=== PATIENT | female | born 1990 | race Caucasian/White ===

== ENCOUNTER → 2016-03-16 | Outpatient (CLI) | payer OTHER ==
--- NOTE | 2016-03-16 21:14 | REP ---
Clinical: Anatomical evaluation. Comparison: 12/14/2015 . Findings: Examination demonstrates a single live intrauterine in breech presentation. motion is identified by technologist. Placenta is noted anteriorly and grade zero without evidence for placenta previa or abruption. Amniotic fluid volume is normal. Cervix measures 4.6 cm in length and appears closed. No evidence for nuchal cord. Gestational age by LMP 20 weeks 3 days with KATHARINA 07/31/2016 . Gestational age by current measurements 20 weeks 1 day with KATHARINA 08/02/2016 . FHR equals 141 beats per minute. BPD 4.8 cm 20 weeks 4 days HC 18.0 cm 20 weeks 3 days AC 15.2 cm 20 weeks 3 days FL 3.3 cm 20 weeks 2 days HL 3.2 cm 20 weeks 4 days HC/AC ratio 1.18 Estimated weight 350 grams ( 44th percentile). Anatomical assessment demonstrates normal structures including cranium, choroid plexus, cavum, cerebellum/posterior fossa, lungs, four-chamber heart/ventricular outflow tracts, diaphragm, stomach, cord insertion/three-vessel cord, kidneys/bladder, and extremities. Impression: Single live intrauterine in breech presentation demonstrating appropriate interval growth. Limited evaluation of the facial features and spine. Remainder of the anatomical assessment is normal. Signed by Syed Bautista MD 03/16/2016 09:05 P
== END ==
LOC: M SMT 13:42
PROVIDERS: ATTEND Advanced Practice Midwife
DX: Z34.82 Encounter for supervision of other normal pregnancy, second trimester (principal)

== ENCOUNTER → 2016-04-12 | Outpatient (CLI) | payer OTHER ==
--- NOTE | 2016-04-13 04:11 | REP ---
Clinical: Anatomical evaluation. Comparison: 03/16/2016 . Findings: Examination demonstrates a single live intrauterine in cephalic presentation. motion is identified by technologist. Placenta is noted anteriorly and grade one without evidence for placenta previa or abruption. Amniotic fluid volume is normal. Cervix measures 3.7 cm in length and appears closed. No evidence for nuchal cord. Gestational age by first ultrasound 24 weeks 2 days with KATHARINA 07/31/2016 . Gestational age by current measurements 24 weeks 0 days with KATHARINA 08/02/2016 . FHR equals 139 beats per minute. Estimated weight 727 grams ( 56th percentile). Anatomical assessment demonstrates normal structures including cranium, choroid plexus, cavum, cerebellum/posterior fossa, facial features, lungs, four-chamber heart, diaphragm, stomach, cord insertion/three-vessel cord, kidneys/bladder, spine, and extremities. Impression: Single live intrauterine in cephalic presentation demonstrating appropriate interval growth. In conjunction with prior examination anatomical assessment is complete and normal. Signed by Syed Bautista MD 04/13/2016 04:03 A
== END ==
LOC: M SMT 13:52
PROVIDERS: ATTEND Specialist
DX: Z34.82 Encounter for supervision of other normal pregnancy, second trimester (principal)

== ENCOUNTER → 2016-04-26 | Outpatient (CLI) | payer OTHER ==
[2016-04-26 18:49] LABS: FREE T4 1.01 NG/DL (0.76-1.46)
[2016-04-26 19:18] LABS: MEAN CORPUSCULAR HEMOGLOBIN 27.5 pg (27.0-33.0); MEAN CORPUSCULAR HGB CONC 31.6 g/dl (32.0-36.5); RED CELL DISTRIBUTION WIDTH 14.2 % (11.5-14.5)
== END ==
LOC: M SMT 13:11
PROVIDERS: ATTEND Advanced Practice Midwife
DX: Z34.82 Encounter for supervision of other normal pregnancy, second trimester (principal); E03.9 Hypothyroidism, unspecified

== ENCOUNTER → 2016-04-28 | Outpatient (REF) | payer OTHER | LOC: M LAB REF 13:30 | PROVIDERS: ATTEND Obstetrics & Gynecology | DX: Z34.82 Encounter for supervision of other normal pregnancy, second trimester (principal) ==

== ENCOUNTER 2016-06-14 19:55 | Outpatient (CLI) | payer OTHER ==
[~2016-06-14] VITALS: Ht 167.6 cm; Wt 98.0 kg
[~2016-06-14 19:55] MED LIST: ACET50TA PO; IBUP80TA PO; LANOOIN21 TOP; NORE0.352 PO
[2016-06-14 20:07] VITALS: BP 127/80
== END 2016-06-14 22:35 | disposition home or self-care (01) ==
LOC: M LDO 19:55
PROVIDERS: ATTEND Advanced Practice Midwife
DX: O36.8131 Decreased fetal movements, third trimester, fetus 1 (principal); O47.03 False labor before 37 completed weeks of gestation, third trimester; O99.343 Other mental disorders complicating pregnancy, third trimester; O99.283 Endocrine, nutritional and metabolic diseases complicating pregnancy, third trimester; O99.333 Smoking (tobacco) complicating pregnancy, third trimester; Z3A.33 33 weeks gestation of pregnancy

== ENCOUNTER → 2016-06-29 | Outpatient (CLI) | payer OTHER ==
--- NOTE | 2016-06-30 03:12 | REP ---
Clinical: Growth discrepancy evaluation. Comparison: 05/31/2016 . Findings: Examination demonstrates a single live intrauterine in cephalic presentation. motion is identified by technologist. Placenta is noted anteriorly and grade III without evidence for placenta previa or abruption. Amniotic fluid volume is normal. Cervix measures 3.4 cm in length and appears closed. No evidence for nuchal cord. Gestational age by LMP 35 weeks 3 days with KATHARINA 07/31/2016 . Gestational age by current measurements 34 weeks 6 days with KATHARINA 08/04/2016 . FHR equals 125 beats per minute. BPD 8.9 cm 35 weeks 6 days HC 31.5 cm 35 weeks 3 days AC 32.1 cm 36 weeks 0 days FL 6.6 cm 33 weeks 5 days HL 5.7 cm 33 weeks 0 days HC/AC ratio 0.98 Estimated weight 2661 grams ( 49th percentile). Amniotic fluid index equals 25.0 cm (7.8 - 24.9) Limited anatomical assessment demonstrates no gross abnormalities. Impression: 1. Single live advanced gestation in cephalic presentation demonstrating appropriate interval growth. 2. Amniotic fluid volume is upper limits of normal/borderline polyhydramnios. Signed by Syed Bautista MD 06/30/2016 03:04 A
== END ==
LOC: M RAD 12:02
PROVIDERS: ATTEND Advanced Practice Midwife
DX: Z36 Encounter for antenatal screening of mother (principal)

== ENCOUNTER → 2016-07-05 | Outpatient (CLI) | payer OTHER ==
[2016-07-05 16:16] LABS: FREE T4 0.97 NG/DL (0.76-1.46)
== END ==
LOC: M LAB 14:53
PROVIDERS: ATTEND Advanced Practice Midwife
DX: E03.9 Hypothyroidism, unspecified (principal)

== ENCOUNTER 2016-07-13 19:17 | Outpatient (CLI) | payer OTHER ==
[~2016-07-13] VITALS: Ht 167.6 cm; Wt 100.0 kg
[2016-07-13 19:28] VITALS: BP 131/72
[2016-07-13 19:32] VITALS: BP 131/72
[2016-07-13] MEDS ORDERED: LEXA1TAB2 PO (20:17)
[2016-07-13] MEDS ORDERED: LEVO75TA4 PO (20:17)
== END 2016-07-13 20:50 | disposition home or self-care (01) ==
LOC: M LDO 19:17
PROVIDERS: ATTEND Obstetrics & Gynecology
DX: O47.1 False labor at or after 37 completed weeks of gestation (principal); Z3A.37 37 weeks gestation of pregnancy

== ENCOUNTER → 2016-07-21 | Outpatient (CLI) | payer OTHER ==
[~2016-07-21] MED LIST changes: +COLA100C3 PO; +IBUP-1114 PO; +LEVO25TA5 PO; +LEVO75TA4 PO; +LEXA1TAB2 PO; +MILKSUS PO
--- NOTE | 2016-07-22 04:08 | REP ---
Clinical: Size discrepancy . Comparison: 06/29/2016 . Findings: Examination demonstrates a single live intrauterine in cephalic presentation. motion is identified by technologist. Placenta is noted anteriorly and grade III without evidence for placenta previa or abruption. Amniotic fluid volume is normal. Cervix measures 4.2 cm in length and appears closed. Nuchal cord cannot be excluded. Gestational age by LMP 38 weeks 4 days with KATHARINA 07/31/2016 . Gestational age by current measurements 37 weeks 4 days with KATHARINA 08/07/2016 . FHR equals 157 beats per minute. BPD 9.1 cm 36 weeks 6 days HC 34.4 cm 39 weeks 5 days AC 34.4 cm 38 weeks 2 days FL 7.2 cm 36 weeks 5 days HL 6.2 cm 35 week 6 days HC/AC ratio 1.00 Estimated weight 3347 grams ( 50th percentile). Amniotic fluid index equals 19.0 cm (7.2 - 23.1). Umbilical cord SD ratio equals 2.77 (1.60 - 2.60). Impression: Single live advanced gestation in cephalic presentation demonstrating appropriate interval growth. Amniotic fluid index and estimated weight are within normal range. Nuchal cord cannot be excluded. Signed by Syed Bautista MD 07/22/2016 04:01 A
== END ==
LOC: M RAD 10:23
PROVIDERS: ATTEND Advanced Practice Midwife
DX: Z36 Encounter for antenatal screening of mother (principal)

== ENCOUNTER 2016-07-24 06:14 | Inpatient (IN) | payer OTHER ==
[2016-07-24] VITALS (38 sets, daily range): BP systolic 117–140; BP diastolic 56–85
[~2016-07-24] VITALS: Ht 167.6 cm; Wt 98.0 kg
[~2016-07-24 06:14] MED LIST changes: -COLA100C3 PO; -IBUP-1114 PO; -LEVO25TA5 PO; -MILKSUS PO
[2016-07-24] MEDS ORDERED: LEVO25TA5 PO (06:25)
[2016-07-24 06:55] LABS: MEAN CORPUSCULAR HEMOGLOBIN 25.9 pg (27.0-33.0); MEAN CORPUSCULAR HGB CONC 32.6 g/dl (32.0-36.5); MEAN CORPUSCULAR VOLUME 79.6 fl (80.0-96.0); RED CELL DISTRIBUTION WIDTH 14.5 % (11.5-14.5)
[2016-07-24] MEDS: miSOPROStol 50 MCG 1/2 TAB (S0191) PO SCH ×2 (07:33→13:36)
[2016-07-24] MEDS ORDERED: LR 1,000 ML IV SCH (16:30)
[2016-07-24] MEDS ORDERED: LR 1,000 ML IV ONE (16:30)
[2016-07-24] MEDS ORDERED: FENTANYL 2MCG/ML ROPIVACAINE 0.2% IN 0.9% NACL 200ML IVBAG As Ordered ONE (16:51)
[2016-07-24] MEDS ORDERED: diphenhydrAMINE INJ 50MG/ML VIAL (J1200) IV PRN (17:45)
[2016-07-24] MEDS ORDERED: FENTANYL/ROPIVACAINE/NACL BAG 200 ML EPIDURAL SCH (17:45)
[2016-07-24] MEDS ORDERED: ePHEDrine SULFATE 25 MG/5 ML(5MG/ML) SYRINGE IV PRN (17:45)
[2016-07-24] MEDS ORDERED: EPIDURAL COMMENT XX SCH (17:45)
[2016-07-24] MEDS ORDERED: EPIDURAL/PCA KEYS XX PRN (17:45)
[2016-07-24] MEDS ORDERED: REFRIGERATOR IV KEYS XX PRN (17:45)
[2016-07-24] MEDS ORDERED: ONDANSETRON 4MG/2ML VIAL (J2405) IV PRN (17:45)
[2016-07-24] MEDS ORDERED: LACTATED RINGER'S 1000 ML IV PRN (17:45)
[2016-07-24] MEDS ORDERED: NALOXONE INJ 0.4 MG/1 ML VIAL (J2310) IV PRN (17:45)
[2016-07-24] MEDS ORDERED: OXYTOCIN 30 UNITS IN 0.9% NaCl 500ML IV BAG (J2590) As Ordered ONE (18:59)
[2016-07-24 20:12] LABS: CORD GAS ABE A -3.2; CORD GAS ABE V -1.5; CORD GAS HCO3 A 24.4 MEQ/L; CORD GAS HCO3 V 23.9 MEQ/L; CORD GAS O2 SAT A < 15.0 %; CORD GAS O2 SAT V 35.1 %; CORD GAS PCO2 V 42.8 mmHg; CORD GAS PH A 7.273 UNITS; CORD GAS PH V 7.365 UNITS; CORD GAS PO2 A 11.5 mmHg; CORD GAS PO2 V 16.7 mmHg; CORD GAS SBC V 21.6 MEQ/L; CORD GAS TCO2 A 26.1 MEQ/L; CORD GAS TCO2 V 25.2 MEQ/L
[2016-07-24] MEDS ORDERED: OXYTOCIN DRIP 30 UNITS in APPROPRIATE DILUENT 1 EA IV SCH (20:28)
[2016-07-24] MEDS ORDERED: ANUSOL HC CREAM 30GM TOP PRN (20:30)
[2016-07-24] MEDS ORDERED: MEASLES,MUMPS,RUBELLA VACCINE INJ (MMR-II) (90707) SC SCH (20:30)
[2016-07-24] MEDS ORDERED: DOCUSATE SODIUM 100 MG CAP PO PRN (20:30)
[2016-07-24] MEDS ORDERED: RHOGAM 300 MCG (1500 IU) INJ (J2790) IM SCH (20:30)
[2016-07-24] MEDS ORDERED: ACETAMINOPHEN 500 MG TAB PO PRN (20:30)
[2016-07-24] MEDS ORDERED: IBUPROFEN 800 MG TAB PO PRN (20:30)
[2016-07-24] MEDS ORDERED: DIBUCAINE 1% OINTMENT 30GM TOP PRN (20:30)
[2016-07-24] MEDS ORDERED: METHYLERGONOVINE MALEATE 0.2 MG TAB PO PRN (20:30)
[2016-07-24] MEDS ORDERED: MOM 30ML SUSPENSION UDC PO PRN (20:30)
--- NOTE | 2016-07-24 20:31 | HPE ---
DATE OF ADMISSION: 07/24/2016 REASON FOR ADMISSION: Induction of labor. HISTORY OF PRESENT ILLNESS: Mrs. Emerson is a 26-year-old 3, para 2, who presents at 39 weeks by a seven-week ultrasound for induction of labor. PAST MEDICAL HISTORY: History of depression, hypothyroidism. PAST SURGICAL HISTORY: Tonsillectomy. PAST OBSTETRICAL HISTORY: She is 3, para 2. She is proven to 10 pounds. She has had two term vaginal deliveries. MEDICATIONS: Levothyroxine and Ambien. ALLERGIES: She has no known drug allergies. SOCIAL HISTORY: She is an occasional smoker during the . Denies any alcohol or drug use during the . PHYSICAL EXAMINATION: Vital signs are stable. She is afebrile. She has a category one heart tracing. No contractions on tocometer. GENERAL APPEARANCE: Is well appearing, no acute distress. LUNGS: Clear to auscultation bilaterally. CARDIOVASCULAR: Heart regular rate and rhythm. ABDOMEN: Gravid, nontender. Estimated weight (EFW) 3500 grams. CERVICAL EXAM: She was 2 cm dilated, 50% effaced, -3 station. LABORATORY DATA: Blood type is A positive. Antibody screen is negative. Rubella immune. RPR nonreactive. Hepatitis surface antigen is negative. HIV is negative. Hepatitis C is nonreactive. Chlamydia and gonorrhea screens are negative. She had a normal one-hour Glucola, and she is GBS negative. ASSESSMENT: 1. Mrs. Emerson is a 26-year-old 3, para 2, who presents at 39 weeks, zero days estimated gestational age by a first-trimester ultrasound, here for a social induction of labor. 2. Reassuring status. PLAN: 1. Admit to labor and delivery. Complete blood count (CBC), rapid plasma reagin (RPR), type and screen. 2. The patient has been thoroughly counseled in regards to induction of labor. I discussed medications as well as procedures performed in labor and delivery. She has also been verbally consented for emergency surgery, blood products, anesthesia, and desires to proceed with admission. 3. We will initiate her induction of labor with 50 mcg of misoprostol orally.
--- NOTE | 2016-07-24 21:29 | DN ---
DATE OF DELIVERY: 07/24/2016 TIME OF : 1946. GENDER: Female. SCORES: 8 and 9. WEIGHT: 7 pounds 4 ounces, 3274 grams. ESTIMATED BLOOD LOSS: 300 mL. ANESTHESIA: Epidural. LACERATIONS: None. CORD GAS: 7.27, 7.36, base excess of -3.2, -1.5. COUNTS: Five laparotomy sponges accounted for prior to and after delivery. Two sharps removed from the delivery field. DELIVERY NOTE: On 07/24/2016, at 1947, Mrs. Emerson, a 26-year-old 3, now para 3, had a spontaneous vaginal delivery of a liveborn female infant, scores of 8 and 9, with weight of 7 pounds 4 ounces at 3274 grams. Head was delivered occiput anterior (OA) over intact perineum. There was a tight nuchal cord which was manually reduced, followed by delivery of left anterior shoulder, right posterior shoulder and corpus. was then handed to mom. Cord was clamped times two, was cut by the father of the baby under my direction. Cord blood and cord gases were obtained. Placenta was then drained and delivered grossly intact. A premixed bag of 500 mL of normal saline with 30 units if Pitocin was then bolused along with uterine massage. The uterus was firm. On inspection, cervix, vagina, perineum grossly intact and hemostatic. Mom and baby in recovery in stable condition. The couple has decided to name their daughter
[2016-07-25 05:25] VITALS: BP 147/84
[2016-07-25] MEDS: PRENATAL VITAMIN TAB PO SCH (08:46)
[2016-07-25 18:05] VITALS: BP 153/77
[2016-07-26 05:53] VITALS: BP 139/71
[2016-07-26] MEDS: PRENATAL VITAMIN TAB PO SCH (07:20)
[2016-07-26] MEDS ORDERED: MILKSUS PO (07:50)
[2016-07-26] MEDS ORDERED: ACET50TA PO (07:50)
[2016-07-26] MEDS ORDERED: IBUP-1114 PO (07:50)
[2016-07-26] MEDS ORDERED: COLA100C3 PO (07:50)
== END 2016-07-26 09:30 | disposition home or self-care (01) | DRG 775 ==
LOC: M LDI 06:14 → M OBS 22:28
PROVIDERS: ADMIT Obstetrics & Gynecology; ATTEND Obstetrics & Gynecology
PROC: 10E0XZZ Delivery of Products of Conception, External Approach (ICD-10-PCS; principal; 2016-07-24)
PROC: 3E0DXGC Introduction of Other Therapeutic Substance into Mouth and Pharynx, External Approach (ICD-10-PCS; 2016-07-24)
DX: O69.89X0 Labor and delivery complicated by other cord complications, not applicable or unspecified (principal); Z37.0 Single live birth; Z3A.39 39 weeks gestation of pregnancy; E03.9 Hypothyroidism, unspecified; O99.284 Endocrine, nutritional and metabolic diseases complicating childbirth; F17.200 Nicotine dependence, unspecified, uncomplicated; O99.334 Smoking (tobacco) complicating childbirth

== ENCOUNTER → 2016-08-30 | Outpatient (CLI) | payer OTHER ==
[~2016-08-30] MED LIST changes: +COLA100C3 PO; +FLUC100T PO; +IBUP-1114 PO; +LEVO25TA5 PO; +MILKSUS PO
[2016-08-30 18:10] LABS: THYROXINE (T4) 10.5 UG/DL (4.5-12.0)
== END ==
LOC: M SMT 14:33
PROVIDERS: ATTEND Advanced Practice Midwife
DX: E03.9 Hypothyroidism, unspecified (principal)

== ENCOUNTER → 2016-09-20 | Day surgery (SDC) | payer OTHER ==
[~2016-09-20] VITALS: Ht 167.6 cm; Wt 90.7 kg
[~2016-09-20] MED LIST changes: +BUPIVACAINE HCL 0.25% 10 ML VIAL As Ordered ONE; -COLA100C3 PO; +COLA100C5 PO; +HYDROmorphone HCL 2 MG/ML 1ML VIAL (J1170) As Ordered ONE; +KETOROLAC 30 MG/ML VIAL (J1885) IV SCH; +KETOROLAC 60 MG/2 ML VIAL (J1885) As Ordered ONE; +LIDOCAINE 2% INJ 100 MG/5 ML SDV (FOR ANES.) As Ordered ONE; +LR 1,000 ML IV ONE; +LR 1,000 ML IV SCH; +METOCLOPRAMIDE INJ 10MG/2ML VIAL (J2765) As Ordered ONE; +MIDAZOLAM INJ 2 MG/2 ML VIAL (J2250) As Ordered ONE; +ONDANSETRON 4MG/2ML VIAL (J2405) As Ordered ONE; +ONDANSETRON 4MG/2ML VIAL (J2405) IV PRN; +PERCOCET 5MG/325MG TAB PO PRN; +PROPOFOL 200 MG/20 ML VIAL As Ordered ONE; +VICO7.5T11 PO; +dexameTHASONE 4 MG/ML 1ML VIAL (J1100) As Ordered ONE; +fentaNYL 100 MCG/2 ML INJECTION (J3010) As Ordered ONE
[2016-09-20 11:20] LABS: MEAN CORPUSCULAR HEMOGLOBIN 25.9 pg (27.0-33.0); MEAN CORPUSCULAR HGB CONC 32.4 g/dl (32.0-36.5); RED CELL DISTRIBUTION WIDTH 17.3 % (11.5-14.5); WHITE BLOOD COUNT 6.5 K/mm3 (4.0-10.0)
[2016-09-20 11:33] LABS: CONTROL LINE HCG INT CTR LINE PRESENT
[2016-09-20] MEDS: fentaNYL 100 MCG/2 ML INJECTION (J3010) IV PRN ×4 (13:51→14:15)
--- NOTE | 2016-09-20 13:56 | RO ---
DATE OF PROCEDURE: 09/20/2016 PREPROCEDURE DIAGNOSES: Satisfied parity with undesired fertility. POSTPROCEDURE DIAGNOSES: Satisfied parity with undesired fertility. PROCEDURE: Laparoscopy bilateral tubal ligation using Filshie clips. SURGEON: Viktoriya Ariza M.D. ASSEMBLER WATCH TRAIN: None. ANESTHESIA: General endotracheal anesthesia. ESTIMATED BLOOD LOSS: 5 mL. INTRAVENOUS FLUIDS: 700 mL of lactated Ringer solution. URINE OUTPUT: 600 mL. PREOPERATIVE ANTIBIOTICS: None. INFECTION CLASSIFICATION: 1. OPERATIVE FINDINGS: Patient with normal appearing pelvic anatomy to include bilateral adnexa, uterus, posterior and inferior cul-de-sac. Appendix is visualized and appeared to be normal. Normal appearing liver edge. INDICATION FOR OPERATION: Mrs. Emerson, a 26-year-old, 3 para 3 has expressed satisfied parity with undesired fertility. She has been counseled on alternative contraception options and desires to proceed with permanent sterilization. DESCRIPTION OF OPERATION: After informed consent was obtained and written consent was reviewed, the patient was taken to the operating room where general endotracheal anesthesia was obtained. She was then placed in the lithotomy position, and was prepped and draped in a normal sterile fashion. A time out in the operating room was then performed identifying the patient, procedure to be performed as well as drug allergies. A bivalve speculum was then placed in the vagina revealing the cervix. The anterior lip of the cervix was grasped with a single tooth tenaculum. A Hulka tenaculum was then advanced through the cervical os for means to manipulate the uterus. The single tooth tenaculum and speculum was then removed. A Puente catheter was placed and set to gravity. Gloves were changed and attention was turned to the patient's abdomen where 0.25% Marcaine was infused in umbilical region. This area was incised, and a 5 mm trocar and sleeve was advanced through this incision under direct visualization. The laparoscope was then replaced confirming intra-abdominal placement. Pneumoperitoneum was then obtained using CO2 gas. The abdomen was then surveyed with the above noted finding. Next a second port was placed approximately 2 cm above the pubic symphysis in the midline. This area was infused with 0.25% Marcaine, an incision was made in this area and an 8 mm trocar and sleeve was then advanced through this incision under direct visualization. The right fallopian tube was then followed out the fimbriated end using the Filshie clip applicator. The Filshie clip was applied in mid isthmic portion of the right fallopian tube with good blanching noted. The Filshie clip applicator was then reloaded in a similar fashion, the left fallopian tube was followed out to the fimbriated end and using Filshie clip applicator, a Filshie clip was applied in mid isthmic portion of the left fallopian tube with good blanching noted. Instruments were then removed from the patient's abdomen. The pneumoperitoneum was then released. Trocars were removed. Port sites were closed with #4-0 Monocryl and was dressed with Dermabond. The single tooth tenaculum was then removed. Tenaculum sites were inspected and noted to be hemostatic. Puente catheter was removed. The patient was then taken out of lithotomy position, was awakened from general anesthesia and taken to the recovery room in stable condition. Counts were correct.
[2016-09-20 16:20] VITALS: BP 129/78
== END | disposition home or self-care (01) ==
LOC: M SDC 10:50
PROVIDERS: ATTEND Obstetrics & Gynecology
DX: Z30.2 Encounter for sterilization (principal); E03.9 Hypothyroidism, unspecified; F41.9 Anxiety disorder, unspecified; F32.9 Major depressive disorder, single episode, unspecified; F17.210 Nicotine dependence, cigarettes, uncomplicated; Z79.899 Other long term (current) drug therapy
CPT/HCPCS: 36415; 58671; 84703; 85027; 86850; 86900; 86901; A4649; J1100; J1170; J1885; J2250; J2405; J2765; J3010

== ENCOUNTER 2017-01-27 17:56 | Emergency (ER) | payer OTHER ==
[~2017-01-27] VITALS: Ht 167.6 cm; Wt 96.3 kg
[~2017-01-27 17:56] MED LIST changes: -BUPIVACAINE HCL 0.25% 10 ML VIAL As Ordered ONE; -HYDROmorphone HCL 2 MG/ML 1ML VIAL (J1170) As Ordered ONE; -KETOROLAC 30 MG/ML VIAL (J1885) IV SCH; -KETOROLAC 60 MG/2 ML VIAL (J1885) As Ordered ONE; -LIDOCAINE 2% INJ 100 MG/5 ML SDV (FOR ANES.) As Ordered ONE; -LR 1,000 ML IV ONE; -LR 1,000 ML IV SCH; -METOCLOPRAMIDE INJ 10MG/2ML VIAL (J2765) As Ordered ONE; -MIDAZOLAM INJ 2 MG/2 ML VIAL (J2250) As Ordered ONE; -ONDANSETRON 4MG/2ML VIAL (J2405) As Ordered ONE; -ONDANSETRON 4MG/2ML VIAL (J2405) IV PRN; -PERCOCET 5MG/325MG TAB PO PRN; -PROPOFOL 200 MG/20 ML VIAL As Ordered ONE; -dexameTHASONE 4 MG/ML 1ML VIAL (J1100) As Ordered ONE; -fentaNYL 100 MCG/2 ML INJECTION (J3010) As Ordered ONE
[2017-01-27] MEDS ORDERED: BUSP5TA PO (18:05)
[2017-01-27] MEDS ORDERED: ONDANSETRON 4MG/2ML VIAL (J2405) IV ONE (20:30)
[2017-01-27] MEDS ORDERED: NS 1,000 ML IV ONE (20:30)
[2017-01-27] MEDS ORDERED: KETOROLAC 30 MG/ML VIAL (J1885) IV ONE (20:30)
[2017-01-27] MEDS ORDERED: PANTOPRAZOLE 40MG INJ (PROTONIX) (C9113) IV ONE (20:30)
[2017-01-27 20:41] LABS: BASO % 0.4 % (0.0-1.0); EOS # 0.2 10^3/uL (0.0-0.50); EOS % 2.1 % (0.0-3.0); IMMATURE GRANULOCYTE % 0.4 % (0-0); LYMPH # 3.1 10^3/uL (1.5-6.5); LYMPH % 29.4 % (24.0-44.0); MEAN CORPUSCULAR HEMOGLOBIN 27.7 pg (27.0-33.0); MEAN CORPUSCULAR HGB CONC 31.6 g/dl (32.0-36.5); MEAN CORPUSCULAR VOLUME 87.4 fl (80.0-96.0); MONO # 0.5 10^3/uL (0.0-0.8); NEUTROPHILS # 6.5 10^3/uL (1.8-7.7); NEUTROPHILS % 62.7 % (36.0-66.0); PLATELET COUNT, AUTOMATED 288 10^3/uL (150-450); RED CELL DISTRIBUTION WIDTH 13.6 % (11.5-14.5); WHITE BLOOD COUNT 10.4 10^3/uL (4.0-10.0)
[2017-01-27 21:05] LABS: CONTROL LINE HCG INT CTR LINE PRESENT
[2017-01-27 21:12] LABS: ALBUMIN 3.9 GM/DL (3.2-5.2); ALBUMIN/GLOBULIN RATIO 1.15 (1.00-1.93); ALKALINE PHOSPHATASE 83 U/L (45-117); ALT/SGPT 25 U/L (12-78); AMYLASE 35 U/L (25-115); ANION GAP 6 MEQ/L (8-16); AST/SGOT 12 U/L (7-37); BILIRUBIN,DIRECT < 0.1 MG/DL (0.0-0.2); BILIRUBIN,TOTAL 0.1 MG/DL (0.2-1.0); BLOOD UREA NITROGEN 15 MG/DL (7-18); CALCIUM LEVEL 8.9 MG/DL (8.5-10.1); CARBON DIOXIDE LEVEL 28 MEQ/L (21-32); CHLORIDE LEVEL 110 MEQ/L (98-107); CREATININE FOR GFR 0.89 MG/DL (0.55-1.02); GLOMERULAR FILTRATION RATE > 60.0 (>60); GLUCOSE, FASTING 86 MG/DL (70-105); POTASSIUM SERUM 4.1 MEQ/L (3.5-5.1); SODIUM LEVEL 144 MEQ/L (136-145); TOTAL PROTEIN 7.3 GM/DL (6.4-8.2)
--- NOTE | 2017-01-27 21:40 | REPUSA ---
Clinical history: Right upper quadrant pain. Findings: The pancreas is limited in visualization secondary to overlying bowel gas, but appears micheline sly unremarkable. The liver demonstrates uniform echotexture and echogenicity, with no mass lesions. The gallbladder is contracted but otherwise unremarkable. The common bile duct measures 2 mm and is w ithin normal limits. There is no ascites. The right kidney measures 10.1 cm in length and is unremark able. Impression: Unremarkable ultrasound examination of the right upper quadrant.
[2017-01-27] MEDS ORDERED: MORPHINE 2 MG/ML 1ML SYRINGE IV ONE (22:00)
[2017-01-27] MEDS ORDERED: NORCOTAB PO (22:20)
[2017-01-27] MEDS ORDERED: ZOFR4TAB3 PO (22:20)
[2017-01-27] MEDS ORDERED: NORCO 5/325MG TABLET (BULK FOR ED) PO ONE (22:30)
[2017-01-27 23:48] VITALS: BP 116/73
== END 2017-01-27 23:53 | disposition home or self-care (01) ==
LOC: M ED 17:56
DX: R10.9 Unspecified abdominal pain (principal); F17.200 Nicotine dependence, unspecified, uncomplicated; Z79.899 Other long term (current) drug therapy
CPT/HCPCS: 76705; 80048; 80076; 81001; 82150; 83690; 84703; 85025; 87086; 96361; 96374; 96375; 99284; C9113; J1885; J2405

== ENCOUNTER → 2017-02-07 | Outpatient (CLI) | payer OTHER ==
[~2017-02-07] MED LIST changes: +BUSP5TA PO; +NORCOTAB PO; +ZOFR4TAB3 PO
--- NOTE | 2017-02-07 10:52 | REP ---
Hepatobiliary scan and gallbladder ejection fraction: History: Right upper quadrant pain. Technique: 6.5 mCi of technetium-99m mebrofenin was injected and sequential anterior images are acquired. 65 minutes after the mebrofenin injection, the patient consumed 8 ounces Ensure and an additional 60 minutes of imaging was acquired. Regions of interest are plotted around the gallbladder. Findings: The initial hepatocellular parenchymal uptake phase is normal and homogeneous. Intra- and extra-hepatic bile ducts and duodenum are labeled by the 15 -minute image. The gallbladder is first labeled on the 10 -minute image. There is normal washout from the liver parenchyma into the gallbladder and small intestine on subsequent images. The gallbladder ejection fraction is 50 %. Values greater than 35 % are considered normal with this technique. Impression: Normal hepatobiliary scan and normal gallbladder ejection fraction. Signed by Santo Sandoval MD 02/07/2017 10:44 A
== END ==
LOC: M RAD 07:47
PROVIDERS: ATTEND Family Medicine
DX: R10.11 Right upper quadrant pain (principal)

== ENCOUNTER → 2017-03-04 | Outpatient (CLI) | payer OTHER ==
[2017-03-10 00:10] LABS: ANTI-SACCHAROMYCES CEREV. IgA <20.0 Units (0.0-24.9); ANTI-SACCHAROMYCES CEREV. IgG <20.0 Units (0.0-24.9)
== END ==
LOC: M LAB 10:08
PROVIDERS: ATTEND Internal Medicine Gastroenterology
DX: R19.4 Change in bowel habit (principal); R19.7 Diarrhea, unspecified; R10.84 Generalized abdominal pain

== ENCOUNTER 2017-05-10 14:30 | Outpatient (RCR) | payer OTHER | END 2017-05-11 | LOC: M PT 14:30 | DX: Z51.89 Encounter for other specified aftercare (principal); M54.5 Low back pain ==

== ENCOUNTER → 2017-06-05 | Outpatient (CLI) | payer OTHER | LOC: M LRY 15:08 | DX: S79.911A Unspecified injury of right hip, initial encounter (principal); X58.XXXA Exposure to other specified factors, initial encounter; Y92.9 Unspecified place or not applicable | CPT/HCPCS: 73502; 96372 ==

== ENCOUNTER 2017-06-27 05:52 | Day surgery (SDC) | payer OTHER ==
[2017-06-27] MEDS: LR 1,000 ML IV ×3 (06:00→13:51)
[2017-06-27 06:42] LABS: CONTROL LINE UCG INT CTR LINE PRESENT; URINE PREG TEST NEGATIVE (NEGATIVE)
[2017-06-27 06:45] LABS: HEMATOCRIT 38.7 % (36.0-47.0); HEMOGLOBIN 12.8 g/dl (12.0-15.5); MEAN CORPUSCULAR HEMOGLOBIN 27.7 pg (27.0-33.0); MEAN CORPUSCULAR HGB CONC 33.1 g/dl (32.0-36.5); MEAN CORPUSCULAR VOLUME 83.8 fl (80.0-96.0); PLATELET COUNT, AUTOMATED 239 10^3/uL (150-450); RED BLOOD COUNT 4.62 10^6/uL (4.00-5.40); RED CELL DISTRIBUTION WIDTH 13.8 % (11.5-14.5); WHITE BLOOD COUNT 8.3 10^3/uL (4.0-10.0)
[2017-06-27] MEDS ORDERED: PROPOFOL 200 MG/20 ML VIAL As Ordered (07:14)
[2017-06-27] MEDS ORDERED: ROCURONIUM BROMIDE 50 MG/5 ML VIAL As Ordered ×2 (07:14→08:19)
[2017-06-27] MEDS ORDERED: fentaNYL 100 MCG/2 ML INJECTION (J3010) As Ordered ×3 (07:15→09:17)
[2017-06-27] MEDS ORDERED: MIDAZOLAM INJ 2 MG/2 ML VIAL (J2250) As Ordered (07:15)
[2017-06-27] MEDS ORDERED: GLYCOPYRROLATE INJ 0.2 MG/ML 2 ML VIAL As Ordered ×2 (08:15→08:50)
[2017-06-27] MEDS: METHYLENE BLUE 0.5% (5MG/ML) 10 ML AMP (PROVAYBLUE)(Q9968 PER 1MG) As Ordered (08:30)
[2017-06-27] MEDS: BUPIVACAINE HCL 0.25% 10 ML VIAL As Ordered (08:30)
[2017-06-27] MEDS ORDERED: NEOSTIGMINE 10 MG/10 ML VIAL (J2710) As Ordered (08:50)
[2017-06-27] MEDS ORDERED: ONDANSETRON 4MG/2ML VIAL (J2405) As Ordered ×2 (08:54→09:17)
[2017-06-27] MEDS ORDERED: KETOROLAC 60 MG/2 ML VIAL (J1885) As Ordered (08:54)
[2017-06-27] MEDS ORDERED: dexameTHASONE 4 MG/ML 1ML VIAL (J1100) As Ordered (08:55)
[2017-06-27] MEDS ORDERED: PERCOCET 5MG/325MG TAB As Ordered (09:29)
[2017-06-27] MEDS: fentaNYL 100 MCG/2 ML INJECTION (J3010) IV ×8 (09:30→10:15)
[2017-06-27] MEDS: PERCOCET 5MG/325MG TAB PO ×5 (09:30→23:07)
[2017-06-27] MEDS ORDERED: PERCOCET 5MG/325MG TAB PO (09:45)
[2017-06-27] MEDS ORDERED: ONDANSETRON 4MG/2ML VIAL (J2405) IV (09:45)
[2017-06-27] MEDS ORDERED: MORPHINE 4 MG/ML 1ML VIAL/SYRINGE (J2270) IV (09:45)
[2017-06-27] MEDS ORDERED: fentaNYL 100 MCG/2 ML INJECTION (J3010) IV (10:45)
[2017-06-27] MEDS: DOCUSATE SODIUM 100 MG CAP PO ×2 (14:39→21:00)
[2017-06-27] MEDS: KETOROLAC 30 MG/ML VIAL (J1885) IV (16:11)
[2017-06-28] MEDS: PERCOCET 5MG/325MG TAB PO ×2 (03:24→07:54)
[2017-06-28] MEDS: DOCUSATE SODIUM 100 MG CAP PO (07:21)
== END 2017-06-28 09:50 | disposition home or self-care (01) ==
LOC: M SDC 05:52 → M PED 10:45
DX: N92.0 Excessive and frequent menstruation with regular cycle (principal); N72 Inflammatory disease of cervix uteri; F32.9 Major depressive disorder, single episode, unspecified; F41.9 Anxiety disorder, unspecified; E06.9 Thyroiditis, unspecified; Z79.899 Other long term (current) drug therapy
CPT/HCPCS: 58570

== ENCOUNTER → 2017-11-10 | Outpatient (CLI) | payer OTHER ==
[2017-11-10 15:12] LABS: PLATELET COUNT, AUTOMATED 267 10^3/uL (150-450)
[2017-11-10 15:23] LABS: INR 1.04; PROTHROMBIN TIME 13.7 SECONDS (12.1-14.4)
[2017-11-10 15:24] LABS: PARTIAL THROMBOPLASTIN TIME 33.5 SECONDS (25.4-37.6)
[2017-11-10 15:48] LABS: COLLAGEN EPINEPHRINE 100 SECONDS (74-162)
== END ==
LOC: M LAB 14:51
DX: Z01.818 Encounter for other preprocedural examination (principal); M54.5 Low back pain
CPT/HCPCS: 85049

== ENCOUNTER → 2017-11-16 | Outpatient (CLI) | payer OTHER | LOC: M RAD 16:00 | DX: R10.2 Pelvic and perineal pain (principal); Z90.710 Acquired absence of both cervix and uterus | CPT/HCPCS: 76856 ==

== ENCOUNTER 2017-12-02 06:37 | Day surgery (SDC) | payer OTHER ==
[2017-12-02] MEDS: METHYLENE BLUE 0.5% (5MG/ML) 10 ML AMP (PROVAYBLUE)(Q9968 PER 1MG) As Ordered (07:12)
[2017-12-02 07:15] LABS: HEMOGLOBIN 12.9 g/dl (12.0-15.5)
[2017-12-02] MEDS: ceFAZolin 2 GM/D5W 50 ML IV BAG (J0690 PER 500MG) As Ordered (07:50)
[2017-12-02] MEDS: BUPIVACAINE HCL 0.25% 30 ML VIAL As Ordered (07:54)
[2017-12-02] MEDS ORDERED: MIDAZOLAM INJ 2 MG/2 ML VIAL (J2250) As Ordered (08:00)
[2017-12-02] MEDS ORDERED: PROPOFOL 200 MG/20 ML VIAL As Ordered (08:00)
[2017-12-02] MEDS ORDERED: LIDOCAINE 2% INJ 100 MG/5 ML SDV (FOR ANES.) As Ordered (08:00)
[2017-12-02] MEDS ORDERED: dexameTHASONE 4 MG/ML 1ML VIAL (J1100) As Ordered (08:00)
[2017-12-02] MEDS ORDERED: ONDANSETRON 4MG/2ML VIAL (J2405) As Ordered (08:00)
[2017-12-02] MEDS ORDERED: KETOROLAC 60 MG/2 ML VIAL (J1885) As Ordered (08:00)
[2017-12-02] MEDS ORDERED: fentaNYL 250 MCG/5 ML INJECTION (J3010) As Ordered (08:00)
[2017-12-02] MEDS ORDERED: ROCURONIUM BROMIDE 50 MG/5 ML VIAL As Ordered (08:00)
[2017-12-02] MEDS ORDERED: ALBUTEROL SULFATE 2.5 MG/0.5 ML INH NEB SOLN As Ordered (08:37)
[2017-12-02] MEDS: ALBUTEROL SULFATE 2.5 MG/0.5 ML INH NEB SOLN INH (08:41)
[2017-12-02] MEDS ORDERED: fentaNYL 100 MCG/2 ML INJECTION (J3010) As Ordered (08:44)
[2017-12-02] MEDS ORDERED: PERCOCET 5MG/325MG TAB As Ordered (08:44)
[2017-12-02] MEDS: fentaNYL 100 MCG/2 ML INJECTION (J3010) IV ×4 (08:45→09:00)
[2017-12-02] MEDS: PERCOCET 5MG/325MG TAB PO ×2 (08:45→09:15)
[2017-12-02] MEDS ORDERED: LR 1,000 ML IV ×2 (09:00→09:30)
[2017-12-02] MEDS ORDERED: METOCLOPRAMIDE INJ 10MG/2ML VIAL (J2765) IV (09:00)
[2017-12-02] MEDS ORDERED: ONDANSETRON 4MG/2ML VIAL (J2405) IV (09:00)
[2017-12-02] MEDS ORDERED: PERCOCET 5MG/325MG TAB PO (09:30)
[2017-12-02] MEDS ORDERED: GLYCOPYRROLATE INJ 0.2 MG/ML 2 ML VIAL As Ordered ×2 (09:40)
[2017-12-02] MEDS ORDERED: NEOSTIGMINE 10 MG/10 ML VIAL (J2710) As Ordered (09:40)
== END 2017-12-02 10:27 | disposition home or self-care (01) ==
LOC: M SDC 06:37
DX: N39.3 Stress incontinence (female) (male) (principal); E03.9 Hypothyroidism, unspecified; K21.9 Gastro-esophageal reflux disease without esophagitis; F32.9 Major depressive disorder, single episode, unspecified; F41.9 Anxiety disorder, unspecified; F17.210 Nicotine dependence, cigarettes, uncomplicated; Z79.899 Other long term (current) drug therapy
CPT/HCPCS: 57288

== ENCOUNTER → 2018-02-07 | Outpatient (CLI) | payer OTHER ==
[2018-02-07 12:20] LABS: BASO % 0.2 % (0.0-1.0); EOS # 0.1 10^3/uL (0.0-0.50); EOS % 1.3 % (0.0-3.0); HEMATOCRIT 44.3 % (36.0-47.0); HEMOGLOBIN 14.4 g/dl (12.0-15.5); IMMATURE GRANULOCYTE % 0.5 % (0-3.0); LYMPH # 2.3 10^3/uL (1.5-6.5); LYMPH % 22.2 % (24.0-44.0); MEAN CORPUSCULAR HEMOGLOBIN 28.6 pg (27.0-33.0); MEAN CORPUSCULAR HGB CONC 32.5 g/dl (32.0-36.5); MEAN CORPUSCULAR VOLUME 88.1 fl (80.0-96.0); MONO # 0.5 10^3/uL (0.0-0.8); NEUTROPHILS # 7.4 10^3/uL (1.8-7.7); NEUTROPHILS % 70.8 % (36.0-66.0); PLATELET COUNT, AUTOMATED 272 10^3/uL (150-450); RED BLOOD COUNT 5.03 10^6/uL (4.00-5.40); WHITE BLOOD COUNT 10.5 10^3/uL (4.0-10.0)
[2018-02-07 12:48] LABS: ANION GAP 6 MEQ/L (8-16); BLOOD UREA NITROGEN 22 MG/DL (7-18); C REACTIVE PROTEIN QUANTITATIV < 0.30 MG/DL (0.00-0.30); CALCIUM LEVEL 9.3 MG/DL (8.5-10.1); CARBON DIOXIDE LEVEL 27 MEQ/L (21-32); CHLORIDE LEVEL 107 MEQ/L (98-107); CREATININE FOR GFR 0.81 MG/DL (0.55-1.30); FERRITIN 50 NG/ML (8-252); GLOMERULAR FILTRATION RATE > 60.0 (>60); GLUCOSE, FASTING 90 MG/DL (70-100); IRON (FE) 61 UG/DL (50-170); PERCENT SATURATION 21.3 % (13.2-45.0); POTASSIUM SERUM 3.7 MEQ/L (3.5-5.1); SODIUM LEVEL 140 MEQ/L (136-145); THYROID STIMULATING HORMONE 0.945 uIU/ML (0.358-3.740); TOTAL IRON BINDING CAPACITY 287 UG/DL (250-450)
[2018-02-07 12:49] LABS: ERYTHROCYTE SEDIMENTATION RATE 8 mm/hr (0-20); FOLATE 17.7 NG/ML; VITAMIN B12 LEVEL 602 PG/ML
== END ==
LOC: M LAB 11:27
DX: R63.4 Abnormal weight loss (principal)
CPT/HCPCS: 82746

== ENCOUNTER → 2018-02-08 | Outpatient (CLI) | payer OTHER ==
[~2018-02-08] MED LIST changes: -ACET50TA PO; -BUSP5TA PO; -COLA100C5 PO; -FLUC100T PO; +GASTROGRAFIN SOLUTION 30ML (Q9963) As Ordered; -IBUP-1114 PO; -IBUP80TA PO; +ISOVUE-370 76% 100ML VIAL (Q9967) As Ordered; -LANOOIN21 TOP; -LEVO25TA5 PO; -LEVO75TA4 PO; -LEXA1TAB2 PO; -MILKSUS PO; -NORCOTAB PO; -NORE0.352 PO; -VICO7.5T11 PO; -ZOFR4TAB3 PO
== END ==
LOC: M RAD 16:32
DX: R63.4 Abnormal weight loss (principal)
CPT/HCPCS: Q9963

== ENCOUNTER 2018-03-22 17:57 | Emergency (ER) | payer OTHER ==
[~2018-03-22] VITALS: Ht 167.6 cm; Wt 73.6 kg
[~2018-03-22 17:57] MED LIST changes: +ACET50TA PO; +ADDE1TAB14 PO; +ATIV2TAB PO; +BUSP5TA PO; +COLA100C5 PO; +FLUC100T PO; -GASTROGRAFIN SOLUTION 30ML (Q9963) As Ordered; +IBUP-1114 PO; +IBUP80TA PO; -ISOVUE-370 76% 100ML VIAL (Q9967) As Ordered; +LANOOIN21 TOP; +LEVO25TA5 PO; +LEVO50TA5 PO; +LEVO75TA4 PO; +LEXA1TAB2 PO; +MAPA500T2 PO; +MILK120011 PO; +MIRT15TA3 PO; +MOTR200T44 PO; +NORCOTAB PO; +NORE0.352 PO; +OMEP40CA2 PO; +OXYC1TAB23 PO; +PROZ20CA11 PO; +PROZ40CA PO; +SERO50TA PO; +TRAM50TA2 PO; +TRAZ1TAB14 PO; +VICO7.5T11 PO; +ZOFR4TAB14 PO
[2018-03-22] MEDS ORDERED: KETOROLAC 30 MG/ML VIAL (J1885) IV ONE (19:00)
[2018-03-22] MEDS ORDERED: LORazepam 2 MG TAB PO ONE (19:00)
[2018-03-22] MEDS ORDERED: PROHANCE 279.3MG/ML 15ML VIAL (A9576) As Ordered ONE (19:56)
--- NOTE | 2018-03-22 20:40 | REPVR ---
EXAM: MR Head Without and With Contrast EXAM DATE/TIME: 03/22/2018 8:11 PM CLINICAL HISTORY: 28 years old, female; Signs and symptoms; Altered mental status/memory loss and walking, difficulty; Additional info: New ataxia/memory issues TECHNIQUE: MR of the head without and with intravenous contrast. COMPARISON: CT Head without contrast 09/25/2015 6:23 PM FINDINGS: No abnormal diffusion restriction to indicate acute CVA. Midline structures and cerebellar tonsillar position appear normal. Ventricles, cisterns and sulci are symmetric and normal for age. No intracranial mass, midline shift, or abnormal extra-axial fluid. No acute intracranial hemorrhage. White matter structures demonstrate no abnormal FLAIR or T2 signal. CP angle cisterns show normal CSF signal without effacement or mass. No abnormal parenchymal or meningeal enhancement with gadolinium. Vascular flow voids are preserved in vertebro-basilar and carotid vessels. Major dural venous sinuses appear patent. Paranasal sinuses and mastoid air cells are normally aerated. Ocular globes and orbits are unremarkable. No soft tissue abnormality or asymmetry in the posterior nasopharynx. IMPRESSION: Unremarkable pre-and postcontrast enhanced MRI of the brain. Electronically signed by: Solitario Mendoza On 03/22/2018 20:39:44 PM
[2018-03-22 21:26] VITALS: BP 125/74
== END 2018-03-22 21:27 | disposition home or self-care (01) ==
LOC: M ED 17:57
DX: R41.3 Other amnesia (principal); G43.909 Migraine, unspecified, not intractable, without status migrainosus; R27.0 Ataxia, unspecified; E03.9 Hypothyroidism, unspecified; F43.10 Post-traumatic stress disorder, unspecified; F33.9 Major depressive disorder, recurrent, unspecified; F41.9 Anxiety disorder, unspecified; F90.9 Attention-deficit hyperactivity disorder, unspecified type; R56.9 Unspecified convulsions; Z79.899 Other long term (current) drug therapy; Z79.890 Hormone replacement therapy; F17.210 Nicotine dependence, cigarettes, uncomplicated
CPT/HCPCS: 70553; 96374; 99284; A9576; J1885

== ENCOUNTER 2018-03-31 10:31 | Day surgery (SDC) | payer OTHER ==
[~2018-03-31] VITALS: Ht 167.6 cm; Wt 72.8 kg
[~2018-03-31 10:31] MED LIST changes: +LIDOCAINE 2% INJ 100 MG/5 ML SDV (FOR ANES.) As Ordered ONE; +NS 1,000 ML IV SCH; +PROPOFOL 200 MG/20 ML VIAL As Ordered ONE
[2018-03-31] MEDS ORDERED: PROPOFOL 200 MG/20 ML VIAL As Ordered ONE (12:48)
--- NOTE | 2018-03-31 13:15 | ROOR ---
Patient Name: Lisa Emerson Procedure Date: 03/31/2018 12:33 PM Date of : 1990 Age: 28 Room: [facility] Gender: Female Note Status: Finalized Procedure: Colonoscopy Indications: Weight loss Providers: Ricky Brush MD Referring MD: DAYAMI MISTRY DO Requesting Provider: Medicines: Monitored Anesthesia Care Complications: No immediate complications. Procedure: Pre-Anesthesia Assessment: - Prior to the procedure, a History and Physical was performed, and patient medications and allergies were reviewed. The patient is competent. The risks and benefits of the procedure and the sedation options and risks were discussed with the patient. All questions were answered and informed consent was obtained. Patient identification and proposed procedure were verified by the physician, the nurse and the anesthesiologist in the procedure room. Mental Status Examination: alert and oriented. Airway Examination: normal oropharyngeal airway and neck mobility. Respiratory Examination: clear to auscultation. CV Examination: normal. Prophylactic Antibiotics: The patient does not require prophylactic antibiotics. Prior Anticoagulants: The patient has taken no previous anticoagulant or antiplatelet agents. ASA Grade Assessment: III - A patient with severe systemic disease. After reviewing the risks and benefits, the patient was deemed in satisfactory condition to undergo the procedure. The anesthesia plan was to use monitored anesthesia care (MAC). Immediately prior to administration of medications, the patient was re-assessed for adequacy to receive sedatives. The heart rate, respiratory rate, oxygen saturations, blood pressure, adequacy of pulmonary ventilation, and response to care were monitored throughout the procedure. The physical status of the patient was re-assessed after the procedure. The Colonoscope was introduced through the anus and advanced to the terminal ileum, with identification of the appendiceal orifice and IC valve. Findings: The perianal and digital rectal examinations were normal. The terminal ileum appeared normal. Diffuse moderate inflammation characterized by erosions, erythema, granularity and loss of vascularity was found in the recto-sigmoid colon. Biopsies were taken with a cold forceps for histology. Verification of patient identification for the specimen was done by the physician and nurse using the patient's name, date and medical record number. Estimated blood loss was minimal. Non-bleeding external and internal hemorrhoids were found during retroflexion. The hemorrhoids were small. Impression: - The examined portion of the ileum was normal. 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 Biopsied. - Non-bleeding external and internal hemorrhoids. Recommendation: - Patient has a contact number available for emergencies. The signs and symptoms of potential delayed complications were discussed with the patient. Return to normal activities tomorrow. Written discharge instructions were provided to the patient. - Resume previous diet. - Continue present medications. - Await pathology results. - Repeat colonoscopy at age 52 for screening purposes. - Based on the biopsy results you will receive a phone call from GI clinic in 2-3 weeks to review the pathology results AND/OR your results will be faxed to your Primary care physician. - Return to primary care physician. Ricky Brush MD Ricky Brush MD 03/31/2018 1:14:43 PM This report has been signed electronically. Number of Addenda: 0 Note Initiated On: 03/31/2018 12:33 PM Estimated Blood Loss: Estimated blood loss: none.
[2018-03-31 13:43] VITALS: BP 108/65
--- NOTE | 2018-03-31 13:46 | ROOR ---
Patient Name: Lisa Emerson Procedure Date: 03/31/2018 12:32 PM Date of : 1990 Age: 28 Room: [facility] Gender: Female Note Status: Finalized Procedure: Upper GI endoscopy Indications: Weight loss Providers: Ricky Brush MD Referring MD: DAYAMI MISTRY DO Requesting Provider: Medicines: Monitored Anesthesia Care Complications: No immediate complications. Procedure: Pre-Anesthesia Assessment: - Prior to the procedure, a History and Physical was performed, and patient medications and allergies were reviewed. The patient is competent. The risks and benefits of the procedure and the sedation options and risks were discussed with the patient. All questions were answered and informed consent was obtained. Patient identification and proposed procedure were verified by the physician, the nurse and the anesthesiologist in the procedure room. Mental Status Examination: alert and oriented. Airway Examination: normal oropharyngeal airway and neck mobility. Respiratory Examination: clear to auscultation. CV Examination: normal. Prophylactic Antibiotics: The patient does not require prophylactic antibiotics. Prior Anticoagulants: The patient has taken no previous anticoagulant or antiplatelet agents. ASA Grade Assessment: III - A patient with severe systemic disease. After reviewing the risks and benefits, the patient was deemed in satisfactory condition to undergo the procedure. The anesthesia plan was to use monitored anesthesia care (MAC). Immediately prior to administration of medications, the patient was re-assessed for adequacy to receive sedatives. The heart rate, respiratory rate, oxygen saturations, blood pressure, adequacy of pulmonary ventilation, and response to care were monitored throughout the procedure. The physical status of the patient was re-assessed after the procedure. The Endoscope was introduced through the mouth, and advanced to the second part of duodenum. The upper GI endoscopy was accomplished without difficulty. The patient tolerated the procedure well. Findings: The examined esophagus was normal. Diffuse mildly erythematous mucosa without bleeding was found in the gastric antrum. Biopsies were taken with a cold forceps for Helicobacter pylori testing. Verification of patient identification for the specimen was done by the physician and nurse using the patient's name, date and medical record number. Estimated blood loss was minimal. The duodenal bulb and second portion of the duodenum were normal. Biopsies for histology were taken with a cold forceps for evaluation of celiac disease. Impression: - Normal esophagus. - Erythematous mucosa in the antrum. Biopsied. - Normal duodenal bulb and second portion of the duodenum. Biopsied. Recommendation: - Patient has a contact number available for emergencies. The signs and symptoms of potential delayed complications were discussed with the patient. Return to normal activities tomorrow. Written discharge instructions were provided to the patient. - Resume previous diet. - Continue present medications. - Await pathology results. - Based on the biopsy results you will receive a phone call from GI clinic in 2-3 weeks to review the pathology results AND/OR your results will be faxed to your Primary care physician. - Return to GI clinic in [facility] (address [address], [place] [address]) in 4 -- 6 weeks. Please call GI clinic @ [phone] for apppointment date and time. - Return to primary care physician. Ricky Brush MD Ricky Brush MD 03/31/2018 1:45:35 PM This report has been signed electronically. Number of Addenda: 0 Note Initiated On: 03/31/2018 12:32 PM Estimated Blood Loss: Estimated blood loss was minimal.
== END 2018-03-31 13:42 | disposition home or self-care (01) ==
LOC: M OPP 10:31
PROVIDERS: ATTEND Internal Medicine Gastroenterology
DX: K64.8 Other hemorrhoids (principal); K63.89 Other specified diseases of intestine; K31.89 Other diseases of stomach and duodenum; R63.4 Abnormal weight loss; E03.9 Hypothyroidism, unspecified; K21.9 Gastro-esophageal reflux disease without esophagitis; F17.210 Nicotine dependence, cigarettes, uncomplicated; Z79.899 Other long term (current) drug therapy

== ENCOUNTER → 2018-05-03 | Outpatient (CLI) | payer OTHER ==
[~2018-05-03] MED LIST changes: -LIDOCAINE 2% INJ 100 MG/5 ML SDV (FOR ANES.) As Ordered ONE; -NS 1,000 ML IV SCH; -PROPOFOL 200 MG/20 ML VIAL As Ordered ONE
== END ==
LOC: M LAB 16:57
PROVIDERS: ATTEND Internal Medicine Gastroenterology
DX: K52.3 Indeterminate colitis (principal); R19.7 Diarrhea, unspecified

== ENCOUNTER → 2018-05-07 | Outpatient (REF) | payer OTHER ==
[2018-05-07 21:28] LABS: CHLAMYDIA DNA AMPLIFICATION NEGATIVE (NEGATIVE); GC DNA AMPLIFICATION NEGATIVE (NEGATIVE)
== END ==
LOC: M SFHCLERA 13:49
PROVIDERS: ATTEND Nurse Practitioner Family
DX: R53.81 Other malaise (principal); R30.0 Dysuria
CPT/HCPCS: 81002; 81025; 87086; 87661; 87804; 87880; G0463

== ENCOUNTER 2018-06-20 18:25 | Emergency (ER) | payer OTHER ==
[~2018-06-20] VITALS: Ht 167.6 cm; Wt 65.9 kg
[~2018-06-20 18:25] MED LIST changes: -ACET50TA PO; +CREO3600 PO; +DICY20TA; +DOXY-350 PO; +HYDR-3715 PO; +IBUP-1022 PO; +MAPA500T17 PO; -NORCOTAB PO; +RANI-280 PO
[2018-06-20] MEDS ORDERED: KETOROLAC 60 MG/2 ML VIAL (J1885) IM ONE (22:30)
[2018-06-20 22:47] LABS: BASO % 0.3 % (0.0-1.0); EOS # 0.1 10^3/uL (0.0-0.50); EOS % 1.3 % (0.0-3.0); HEMATOCRIT 43.7 % (36.0-47.0); HEMOGLOBIN 14.1 g/dl (12.0-15.5); LYMPH # 3.4 10^3/uL (1.5-6.5); LYMPH % 31.6 % (24.0-44.0); MEAN CORPUSCULAR HEMOGLOBIN 28.9 pg (27.0-33.0); MEAN CORPUSCULAR HGB CONC 32.3 g/dl (32.0-36.5); MEAN CORPUSCULAR VOLUME 89.5 fl (80.0-96.0); MONO # 0.6 10^3/uL (0.0-0.8); MONO % 5.7 % (0.0-5.0); NEUTROPHILS # 6.6 10^3/uL (1.8-7.7); NEUTROPHILS % 60.8 % (36.0-66.0); PLATELET COUNT, AUTOMATED 293 10^3/uL (150-450); RED BLOOD COUNT 4.88 10^6/uL (4.00-5.40); WHITE BLOOD COUNT 10.9 10^3/uL (4.0-10.0)
[2018-06-20 23:08] LABS: ALBUMIN 4.6 GM/DL (3.2-5.2); ALT/SGPT 16 U/L (12-78); BILIRUBIN,DIRECT 0.2 MG/DL (0.0-0.2); BILIRUBIN,TOTAL 0.6 MG/DL (0.2-1.0); BLOOD UREA NITROGEN 10 MG/DL (7-18); CALCIUM LEVEL 9.5 MG/DL (8.5-10.1); CARBON DIOXIDE LEVEL 28 MEQ/L (21-32); CHLORIDE LEVEL 106 MEQ/L (98-107); GLOMERULAR FILTRATION RATE > 60.0 (>60); GLUCOSE, FASTING 87 MG/DL (70-100); LIPASE 114 U/L (73-393); POTASSIUM SERUM 4.1 MEQ/L (3.5-5.1); SODIUM LEVEL 139 MEQ/L (136-145); TOTAL PROTEIN 7.3 GM/DL (6.4-8.2)
[2018-06-20 23:48] VITALS: BP 107/65
--- NOTE | 2018-06-21 01:29 | REP ---
Clinical: Lower chest and abdominal pain . Comparison: 11/21/2014 the . Technique: PA and lateral. Findings: The mediastinum and cardiac silhouette are normal. The lung armando are clear and without acute consolidation, effusion, or pneumothorax. The skeletal structures are intact and normal. Impression: 1. No acute cardiopulmonary process. Electronically Signed by Syed Bautista MD 06/21/2018 01:20 A
== END 2018-06-20 23:50 | disposition home or self-care (01) ==
LOC: M ED 18:25
DX: M94.0 Chondrocostal junction syndrome [Tietze] (principal); E03.9 Hypothyroidism, unspecified; K21.9 Gastro-esophageal reflux disease without esophagitis; Z72.0 Tobacco use; Z79.899 Other long term (current) drug therapy
CPT/HCPCS: 71046; 80048; 80076; 83605; 83690; 85025; 85379; 96372; 99283; J1885